=== PATIENT | female | born 1995 | race Caucasian/White ===

== ENCOUNTER 2019-06-13 05:45 | Day surgery (SDC) | payer OTHER, BC ==
[2019-06-13] MEDS ORDERED: FENTAnyl 50 MCG/ML VIAL (08:22)
[2019-06-13] MEDS ORDERED: MIDAZOLAM 1 MG/ML 2 ML INJ ×2 (08:22)
== END 2019-06-13 09:24 | disposition home or self-care (01) ==
LOC: GIL 05:45
DX: K21.0 Gastro-esophageal reflux disease with esophagitis (principal); K29.60 Other gastritis without bleeding
CPT/HCPCS: 43239; 84703; 88305